=== PATIENT | female | born 1985 | race African-American/Black ===

== ENCOUNTER 2019-10-16 14:26 | Emergency (ER) | payer MEDICAID ==
[~2019-10-16] VITALS: Ht 175.3 cm; Wt 53.0 kg
[2019-10-16] MEDS ORDERED: IBUPROFEN 600MG TABLET PO ONE (16:00)
[2019-10-16] MEDS ORDERED: ACETAMINOPHEN WITH CODEINE 300/30MG TABLET PO ONE (18:15)
[2019-10-16 18:52] VITALS: BP 109/71
== END 2019-10-16 18:53 | disposition home or self-care (01) ==
LOC: ER 15:03
DX: S16.1XXA Strain of muscle, fascia and tendon at neck level, initial encounter (principal); S09.8XXA Other specified injuries of head, initial encounter; W22.8XXA Striking against or struck by other objects, initial encounter; Y93.89 Activity, other specified; Y92.89 Other specified places as the place of occurrence of the external cause; Y99.8 Other external cause status
CPT/HCPCS: 72040; 72100; 73000; 81025; 99284